=== PATIENT | male | born 1960 | race Caucasian/White ===

== ENCOUNTER → 2016-05-28 | Outpatient (CLI) | payer BC, OTHER ==
[2016-05-28 08:17] LABS: EKG EKG PERFORMED
[2016-05-28 08:46] LABS: Basophils % (A) 1 %; CH 32.7; CHCM 35.9; Eosinophils # (A) 0.2 k/uL (0-0.7); Eosinophils % (A) 5 %; HCT 42.4 % (39.0-53.0); HDW 2.86; HGB 14.6 gm/dL (13.0-17.5); Luc # (Auto) 0.11; Luc % (Auto) 3; Lymphocytes # (A) 1.1 k/uL (1.0-4.8); Lymphocytes % (A) 26 %; MCH 31.6 pg (25.0-35.0); MCHC 34.5 g/dL (31.0-37.0); MCV 91.5 fL (80.0-100.0); Mean Platelet Volume 6.5; Monocytes # (A) 0.3 k/uL (0-1.0); Monocytes % (A) 6 %; Neutrophils # (A) 2.6 k/uL (1.3-7.7); Neutrophils % (A) 60 %; RBC 4.63 m/uL (4.30-5.90); RDW 12.6 % (11.5-15.5); WBC 4.4 k/uL (3.8-10.6); WBC (Perox) 4.47
[2016-05-28 08:56] LABS: Anion Gap 11 mmol/L; Carbon Dioxide 29 mmol/L (22-30); Chloride 104 mmol/L (98-107); Potassium 4.6 mmol/L (3.5-5.1); Sodium 144 mmol/L (137-145)
== END | disposition home or self-care (01) ==
LOC: LABPAT 07:59
PROVIDERS: ATTEND Orthopaedic Surgery
DX: Z01.810 Encounter for preprocedural cardiovascular examination (principal); Z01.812 Encounter for preprocedural laboratory examination; I10 Essential (primary) hypertension; M75.42 Impingement syndrome of left shoulder
CPT/HCPCS: 36415; 80051; 85025; 93005

== ENCOUNTER 2016-06-06 06:24 | Day surgery (SDC) | payer BC, OTHER ==
[2016-06-05 11:20] VITALS: BMI 31.9
[~2016-06-06 06:24] MED LIST: DEXAMETHASONE SOD PHOSPHATE 10 MG/ML 1 ML VIAL IV ONE; HYDROmorphone 1 MG/ML 1 ML SYRINGE IVP PRN; LACTATED RINGERS 1,000 ML IV SCH; MIDAZOLAM 2 MG/2 ML VIAL IV PRN; ONDANSETRON 4 MG/2 ML VIAL IVP ONE; SCOPOLAMINE 1.5MG/72HR PATCH TRANSDERM ONE; ceFAZolin 2 GM in SODIUM CHLORIDE 0.9% 100 ML IVPB ONE
[2016-06-06] MEDS ORDERED: LIDOCAINE 1% 20 ML VIAL (10MG/ML) FOR IV START INTRADERMA ONE (07:08)
[2016-06-06] MEDS ORDERED: PROPOFOL 10 MG/ML 20 ML VIAL IV ONE (08:17)
[2016-06-06] MEDS ORDERED: MIDAZOLAM 2 MG/2 ML VIAL ONE (08:17)
[2016-06-06] MEDS ORDERED: ROPIVACAINE 5 MG/ML 30 ML VIAL ONE (08:17)
[2016-06-06] MEDS ORDERED: LIDOCAINE 2%-EPI 1:100,000 20 ML VIAL ONE (08:17)
[2016-06-06] MEDS ORDERED: LIDOCAINE 1% INJ 10MG/ML (20 ML MDV) ONE (08:17)
[2016-06-06] MEDS ORDERED: PHENYLEPHRINE-0.9% NACL SYG 1 MG/10 ML SYRINGE ONE (08:17)
[2016-06-06] MEDS ORDERED: SUCCINYLCHOLINE CHLORIDE 100 MG/5 ML SYR IV ONE (08:17)
--- NOTE | 2016-06-06 08:27 | HP ---
DATE OF ADMISSION: CHIEF COMPLAINT: Left shoulder pain. HISTORY OF PRESENT ILLNESS: The patient is a 55-year-old [employer] employee who presents with left shoulder pain after an injury at work on 04/17/2016. 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 He has been having pain with overhead use and at night ever since. He denies previous problems. He has been taking ibuprofen and Tylenol with codeine for this. PAST MEDICAL HISTORY: Significant for arthritis. PAST SURGICAL HISTORY: Significant for bilateral carpal tunnel release in addition to bilateral total knee replacements. CURRENT MEDICATIONS: 1. Gerda. 2. Ibuprofen. 3. Tylenol with codeine. He denies drug allergies. FAMILY HISTORY: Significant for diabetes. SOCIAL HISTORY: Significant for previous tobacco use, however, he quit in 1995. Sixteen point review of systems otherwise reviewed and is noncontributory. On examination, the patient is approximately 5 foot 6, 197 pounds of endomorphic habitus. HEENT examination is nonfocal. Neck is supple. On examination of his left shoulder: He is tender about the anterior subacromial space. He has moderate subacromial crepitus. Active range of motion of the left shoulder: Forward elevation 140 degrees, external rotation with arm at side 55 degrees, internal rotation to L2. Motor strength is 4+/5 for external rotation and abduction. Muñoz, impingement sign, and Neer test are positive. Speed test is mildly positive. His distal neurovascular exam otherwise appears to be intact in the left upper extremity. MRI report from 05/05/2016 of the left shoulder shows a full thickness tear involving the supraspinatus tendon in addition to biceps tendinosis and possible superior, anterior, and inferior labral tears. IMPRESSION: 1. Left shoulder acute rotator cuff tear/bicipital tendinosis. 2. Left shoulder labral tears. RECOMMENDATIONS: I talked to the patient at length regarding his treatment options. At this point with the acute nature of his injury, I recommended proceeding with surgical intervention. Will plan to proceed with arthroscopic evaluation with possible subacromial decompression, rotator cuff repair and possible biceps tenotomy and labral debridement versus repair. we will likely perform that as an outpatient procedure. The risks and benefits were discussed at length in layman's terms.
[2016-06-06] MEDS ORDERED: LACTATED RINGERS 1,000 ML IV ONE (09:06)
--- NOTE | 2016-06-06 09:57 | P.OP ---
Date of Procedure: 06/06/16 Preoperative Diagnosis: Acute left rotator cuff tear Postoperative Diagnosis: 3 cm tear left rotator cuff/high-grade partial tear long head of the biceps/ superior labral tear Procedure(s) Performed: Left shoulder arthroscopic subacromial decompression/biceps tenotomy/rotator cuff repair/superior labral debridement Implants: Arthrex 5.5 mm swivel lock anchor 2, 4.75 motor swivel lock anchor 2 Anesthesia: JULITO, regional Surgeon: Master Smith Noc Engineer #1: Humberto Martinez Estimated Blood Loss (ml): 10 Pathology: none sent Condition: stable Disposition: PACU Indications for Procedure: The patient's a 55-year-old gentleman who hurt himself at work recently injuring his left shoulder. Upon evaluation he was noted to have an acute left rotator cuff tear. A discussion of the risks and benefits of operative intervention versus attempted conservative measures was made with patient. He opted to proceed with surgery. Operative risks to include infection, neurovascular injury, possible tendon rerupture, possible postoperative stiffness and need for subsequent procedures was discussed. Informed consent was obtained. Operative Findings: As below Description of Procedure: The patient was brought to the operating room, and after induction of general anesthesia was placed in a beachchair position. The bony prominences were appropriately padded. I examined the left shoulder. There was no gross block to passive motion. There was no gross glenohumeral instability. The left upper extremity was prepped and draped in a normal fashion. The bony outlines the acromion, distal clavicle, and coracoid process were outlined with a skin marker. The glenohumeral joint was inflated with 50 mL of saline utilizing a spinal needle from posterior approach. A posterior portal was made through a 5 mm skin incision 1 cm medial and inferior to the posterior lateral border of the acromion. A blunt trocar was used to easily into the joint. Diagnostic arthroscopy was performed. An anterior portals made just lateral to the coracoid process entering the joint above the subscapularis tendon. On inspection of the biceps, there was a high-grade partial thickness tear involving the intra-articular portion. It was elected to proceed with tenotomy at this point. This was released from the superior labrum and allowed to retract to the bicipital groove. It was also a tear of the superior labrum that was debrided back to stable base with a motorized shaver. The anterior and posterior labrum was intact. No significant cartilage injury was noted involving the humeral head or glenoid. On inspection of the rotator cuff, a minimally retracted tear involving the supraspinatus tendon was noted off the greater tuberosity. The arthroscope was placed into the subacromial space. A lateral portal was made through a 5 mm skin incision 2 cm inferior to the anterolateral border of the acromion. The soft tissue on the undersurface of the acromion was debrided with a motorized shaver and with electrocautery clearly defining the anterior medial and lateral borders as well as the distal clavicle. The coracoacromial ligament was detached from the anterior acromion with electrocautery. An anterior inferior acromioplasty is performed with a motorized pascual starting anterolateral, then extending this posteriorly, then extending this medially. I was able to convert to a flat acromion. This was verified from the posterior and lateral viewing portals. The greater tuberosity was then prepared with a motorized pascual and lightly decorticating down to a bleeding bony surface. An accessory superior lateral portals made through a 4 mm skin incision just off the lateral edge of the acromion for anchor placement. 2 anchors were then placed just off the articular surface with the appropriate starting awl. 4.75 mm swivel lock anchors loaded with over 2 fiber tape were placed. These were then passed through the rotator cuff with a scorpion suture passer. A traction suture was also placed. A lateral row was then created utilizing 1 limb from each suture anchor. 5.5 mm swivel lock anchors were placed laterally with the appropriate starting awl. The tissue was appropriately tensioned. Final arthroscopic view showed adequate tenriism of the rotator cuff footprint and compression. The arthroscope was then removed. The anterior, lateral, and posterior portals were closed with simple 3-0 nylon suture. The accessory superior lateral portal was closed with Steri-Strips. A sterile dressing was applied in addition to an abductor brace. The patient was awoken from general anesthesia and transferred to recovery room in good condition. Blood loss was estimated at 10 mL. No complications were incurred. Sponge and needle counts were correct at the end the case.
[2016-06-06 10:09] VITALS: TEMP 97.6
[2016-06-06 11:01] VITALS: RESP 16
[2016-06-06 12:13] VITALS: BP 138/82; PULSE 77
== END 2016-06-06 12:43 | disposition home or self-care (01) ==
LOC: OR 06:24
PROVIDERS: ATTEND Orthopaedic Surgery
DX: S46.012A Strain of muscle(s) and tendon(s) of the rotator cuff of left shoulder, initial encounter (principal); S43.432A Superior glenoid labrum lesion of left shoulder, initial encounter; M67.814 Other specified disorders of tendon, left shoulder; K21.9 Gastro-esophageal reflux disease without esophagitis; Z87.891 Personal history of nicotine dependence; X50.0XXA Overexertion from strenuous movement or load, initial encounter; Y93.89 Activity, other specified; Y92.512 Supermarket, store or market as the place of occurrence of the external cause; Z79.899 Other long term (current) drug therapy; Z79.1 Long term (current) use of non-steroidal anti-inflammatories (NSAID); Z79.891 Long term (current) use of opiate analgesic
CPT/HCPCS: 29827; 29826; 64415; C1713 ×3; C1894; J2250; J1100; J0690; J2405; J2001; J2795; J2370; J0330; J2704

== ENCOUNTER → 2022-10-30 | Outpatient (CLI) | payer BC ==
--- NOTE | 2022-10-30 17:01 | P.PN ---
Subjective DATE: 10/30/2022 FOLLOW UP VISIT. Patient with obstructive sleep apnea hypopnea syndrome return to sleep center for follow-up visit. Recently patient had sleep study which documented obstructive sleep apnea hypopnea syndrome. Patient was initiated on PAP therapy and today is first visit after treatment was started. Patient was able to use PAP equipment every night for the whole night. Results of sleep studies to the patient in details. The patient does not have significant problems with the mask, PAP pressure and humidification. Patient feels improvements after started to use CPAP equipment. She sleeps better and she feels better during the day. [place] sleepiness scale is 9. I checked information from PAP unit. PAP unit pressure 6-15, average 11.7 cm H2O. Usage is 100% and 90 % for more then 4 hours, average 5-3/4 hours per night. Leak is 28.6 l/m, which is in acceptable range. Apnea Hypopnea Index is 0.6, which is normal. MEDICATIONS:1. Rosuvastatin 5 mg once a day 2.. Escitalopram 10 mg once a day During physical exam: GENERAL: A pleasant patient without any distress. VITAL SIGNS: BP 151/90, HR 92, RR 12, weight 211.6, temperature 97.7, oxygen saturation at room air 96%. HEENT: PERRLA, EOMI.low position of soft palate, Mallapati 4 . NECK: Supple. No JVD. LUNGS: Clear to percussion and to auscultation. Good air exchange. No wheezing or rhonchi. HEART: S1, S2 regular. ABDOMEN: Soft and nontender.[] EXTREMITIES: No clubbing or cyanosis. FINANCIAL SERVICES COUNSELOR: Awake, alert, and oriented x3. No focal deficit. Impressions: 1. Obstructive sleep apnea-hypopnea syndrome. Extremely severe range. Apnea hypopnea index is 70 by results of home sleep apnea test. Patient demonstrated great compliance with treatment, benefiting from treatment. Normal respiration on CPAP. 2. Obesity. 3. History of depression. 4.. History of BPH. 5. Hyperlipidemia. 6. Status post bilateral knee replacement. 7. Status post cyst removed from the right side of the jaw. Plan: 1. Continue using PAP equipment every night for the whole night. 2. To change air filter at least 1-2 times per month. 3. PAP unit should stay lower then position of the head. 4. Advised patient to remove all remaining water from humidifier canister daily and make it dry after each usage. Refill canister with fresh distilled water before each usage. 5. Sleep hygiene with regular time in bed for at least 8 hours. 6. Precautions related to driving. No driving if feel any sleepiness. 7. I will maintain prescription for PAP supplies including mask, tube, filters. 8. Follow up visit in 6 months or earlier if patient has any problems. 9. Watching and losing weight. Thank you very much for allowing me to participate in the management of your patient. Mason Koch MD, PhD, FAASM. Diplomat of [place] [employer], Sleep Medicine Board by [place] [employer] Sex Offender Treatment Professional of [facility] [place]
== END ==
LOC: 3 N SLEEP 15:53
PROVIDERS: ATTEND Internal Medicine
DX: G47.33 Obstructive sleep apnea (adult) (pediatric) (principal); F32.A Depression, unspecified; E66.9 Obesity, unspecified; E78.5 Hyperlipidemia, unspecified; N40.0 Benign prostatic hyperplasia without lower urinary tract symptoms; Z96.653 Presence of artificial knee joint, bilateral; Z79.899 Other long term (current) drug therapy; Z99.89 Dependence on other enabling machines and devices; Z91.048 Other nonmedicinal substance allergy status; Z87.891 Personal history of nicotine dependence
CPT/HCPCS: 99212

== ENCOUNTER → 2022-12-05 | Outpatient (CLI) | payer BC ==
[2022-12-05 15:39] LABS: Basophils # (A) 0.03 X 10*3/uL (0.00-0.10); Basophils % (A) 0.7 %; Eosinophils % (A) 4.9 %; HCT 40.6 % (39.6-50.0); HGB 13.9 d/dL (13.0-17.0); Immature Grans, Automated 0 %; Lymphocytes # (A) 1.08 X 10*3/uL (0.90-5.00); Lymphocytes % (A) 26.7 %; MCH 32.3 pg (27.0-32.0); MCHC 34.2 d/dL (32.0-37.0); MCV 94.4 FL (80.0-97.0); Monocytes # (A) 0.36 X 10*3/uL (0.20-1.00); Monocytes % (A) 8.9 %; NRBC Per 100 WBC 0 X 10*3/uL (0.00-0.01); Neutrophils # (A) 2.38 X 10*3/uL (1.80-7.70); Neutrophils % (A) 58.8 %; Platelet Count 201 X 10*3/uL (140-440); RDW 12.9 % (11.5-14.5); WBC 4.05 X 10*3/uL (4.50-10.00)
[2022-12-05 15:52] LABS: BUN/Creat Ratio 15.56 Ratio (12.00-20.00); Calcium 9.5 mg/dL (8.7-10.3); Carbon Dioxide 28.4 mmol/L (21.6-31.8); Chloride 104 mmol/L (96-109); Glucose 107 mg/dL (70-110); Potassium 4.6 mmol/L (3.5-5.5); Sodium 142 mmol/L (135-145)
[2022-12-07 06:26] LABS: NT-Pro-B-Type Natriuretic Pept <20 pg/mL
== END | disposition home or self-care (01) ==
LOC: LABWHC1 08:29
PROVIDERS: ATTEND Orthopaedic Surgery Hand Surgery
DX: Z01.812 Encounter for preprocedural laboratory examination (principal); M65.332 Trigger finger, left middle finger
CPT/HCPCS: 36415; 80048; 83880; 85025; 93005

== ENCOUNTER 2022-12-10 08:04 | Day surgery (SDC) | payer BC ==
[2022-12-04 10:43] VITALS: BMI 34.4
--- NOTE | 2022-12-08 12:53 | P.HPOR ---
History of Present Illness H&P Date: 12/08/22 ubjective: This is a 61 year old male that presents today for follow up evaluation regarding a 6 month history of progressively worsening pain, stiffness, locking and clicking of the left middle finger. He denies any injury or inciting event. He has a history of carpal tunnel release by Dr. Juarez on this hand which has not caused him any issues since. He works at [employer]. He underwent steroid injection which lasted several months but it has returned. Physical Examination: LUE: AIN/PIN/Radial/Ulnar/Median motor intact. Radial/Ulnar/Median SILT. 2+/4 Radial/Ulnar pulses palpated. 5/5 APB, 5/5 FDI. Negative Finkelsteins, negative CMC grind, negative Durkan's compression. TTP over LMF A1 luci with stiffness, and locking. Wrist F/E 80/75. Impression: 1.) Left middle finger trigger finger Plan: Diagnosis and treatment options were discussed with the patient. He would like to pursue a left middle finger A1 luci release. Risks and benefits of surgery including bleeding, infection, damage to surrounding tissue, need for further surgery, residual numbness were discussed and the patient wished to go forward with surgery. I anticipate 1-2 weeks off work until stitches are removed in office. This can be extended if needed. CC: Dr Moiz Jones DO Orthopedic Hand/Upper Extremity Surgeon Past Medical History Past Medical History: GERD/Reflux, Osteoarthritis (OA), Skin Disorder Additional Past Medical History / Comment(s): rosacea, hx migraines, seasonal allergies History of Any Multi-Drug Resistant Organisms: None Reported Past Surgical History: Joint Replacement, Orthopedic Surgery Additional Past Surgical History / Comment(s): kenyatta knee replaced, prior arthroscopies, tumor removed from jaw, carpal tunnel surg., lt shoulder surg. Past Anesthesia/Blood Transfusion Reactions: Motion Sickness Past Psychological History: Anxiety Smoking Status: Former smoker Past Alcohol Use History: Rare Additional Past Alcohol Use History / Comment(s): quit smoking ,smoked approx 20 yrs 1ppd Past Drug Use History: None Reported - Past Family History Mother Family Medical History: Diabetes Mellitus Father Family Medical History: Hypertension Medications and Allergies Home Medications Medication Instructions Recorded Confirmed Type Omeprazole [PriLOSEC] 20 mg PO DAILY 03/12/16 12/04/22 History Alfuzosin HCl [Alfuzosin HCl ER] 10 mg PO DAILY 12/04/22 12/04/22 History Citalopram Hydrobromide 10 mg PO DAILY 12/04/22 12/04/22 History [Citalopram HBr] Rosuvastatin Calcium 5 mg PO HS 12/04/22 12/04/22 History Allergies Allergy/AdvReac Type Severity Reaction Status Date / Time glue used in knee Allergy inflammatio Uncoded 12/04/22 10:33 replacement surg. n Physical Examination Osteopathic Statement: *. No significant issues noted on an osteopathic structural exam other than those noted in the History and Physical/Consult.
[~2022-12-10 08:04] MED LIST changes: -DEXAMETHASONE SOD PHOSPHATE 10 MG/ML 1 ML VIAL IV ONE; -HYDROmorphone 1 MG/ML 1 ML SYRINGE IVP PRN; -LACTATED RINGERS 1,000 ML IV SCH; -MIDAZOLAM 2 MG/2 ML VIAL IV PRN; -ONDANSETRON 4 MG/2 ML VIAL IVP ONE; +Pre Op ABX Message 1 EACH MISC MISCELLANE ONE; -SCOPOLAMINE 1.5MG/72HR PATCH TRANSDERM ONE; -ceFAZolin 2 GM in SODIUM CHLORIDE 0.9% 100 ML IVPB ONE
[2022-12-10] MEDS ORDERED: droPERidol 5 MG/2 ML VIAL IVP ONE (08:15)
[2022-12-10] MEDS ORDERED: HYDROmorphone 0.5 MG/0.5 ML SYRINGE IVP PRN (08:15)
[2022-12-10] MEDS ORDERED: DEXAMETHASONE SOD PHOSPHATE 4 MG/ML 1 ML VIAL IV ONE (08:15)
[2022-12-10] MEDS ORDERED: LIDOCAINE 1% (10MG/ML) FOR IV START INTRADERMA PRN (08:15)
[2022-12-10] MEDS ORDERED: LACTATED RINGERS 1,000 ML IV SCH (08:15)
[2022-12-10] MEDS ORDERED: ONDANSETRON 4 MG/2 ML VIAL IVP ONE (08:15)
[2022-12-10 08:50] VITALS: TEMP 97.4
[2022-12-10] MEDS ORDERED: LIDOCAINE 1% INJ 10MG/ML (20 ML MDV) SQ ONE ×2 (08:56)
[2022-12-10] MEDS ORDERED: BUPIVACAINE (PF) 0.5% 30 ML VIAL SQ ONE ×2 (08:56)
[2022-12-10] MEDS ORDERED: KETOROLAC 15 MG/ML 1 ML VIAL ONE (08:58)
[2022-12-10] MEDS ORDERED: PROPOFOL 10 MG/ML 20 ML VIAL IV ONE (08:58)
[2022-12-10] MEDS ORDERED: fentaNYL (PF) 50 MCG/ML 2 ML AMP ONE (08:58)
[2022-12-10] MEDS ORDERED: MIDAZOLAM 2 MG/2 ML VIAL ONE (08:58)
[2022-12-10 10:03] VITALS: BP 139/84; PULSE 72; RESP 16
--- NOTE | 2022-12-10 10:58 | P.OP ---
Date of Procedure: 12/10/22 Preoperative Diagnosis: Left middle finger trigger finger Postoperative Diagnosis: Left middle finger trigger finger Procedure(s) Performed: Left middle finger A1 luci release Anesthesia: MAC Surgeon: Kavon Jones Change Booth Attendant #1: Ted Drake Estimated Blood Loss (ml): 0 Pathology: none sent Condition: stable Disposition: PACU Description of Procedure: This is a 62year old male who presents today for a left middle finger A1 luci release after having failed conservative treatment in the past. Risks and benefits of surgery were discussed with the patient including bleeding, damage to surrounding tissue, infection, need to convert to open procedure, need for further surgery as well as risks of anesthesia including pulmonary embolism and even and the patient wished to proceed with surgical intervention. The patients was seen in the pre-operative area by myself. Consent and H&P were completed and updated. The correct extremity was marked in the pre-operative area by myself and all other questions were answered. Operative Narrative: The patient was brought to the operating room by the department of anesthesia. They remained on the portable stretcher and a rolling hand table was brought to the side of the operative extremity. Pre-operative time out was performed indicating the correct patient, procedure and laterality. All in the room agreed. The patient was then drifted off to sleep by the department of anesthesia. MAC anesthesia was utilized and a 50:50 mixture of 1% Lidocaine and 0.5% bupivacaine was injected into the subcutaneous tissues of the palmar skin, 8ccs total. A nonsterile tourniquet was then applied to the operative extremity and the left upper extremity was then prepped and draped in normal sterile fashion. The operative extremity was the exsanguinated with an esmarch bandage and the tourniquet was inflated to 250mmHg. Attention was drawn to the middle finger, transverse incision was made over the A1 luci. Blunt dissection was taken down to the A1 luci and radial and ulnar digital nerves were identified and carefully retracted. The A1 luci was then released from proximally to distally with scissors. The finger was then ranged and no locking was appreciated. Skin closure was performed with interrupted 4-0 nylon suture. Sterile dressing was applied consisting of adaptic, 4x4s, Webril, and an pratik bandage. Tourniquet was let down and the hand immediately was well perfused. The patient was then woken by the department of anesthesia and transferred to PACU in stable condition. Ted MCGEE was present for the case in its entirety and assisted in major portions of the case and protection of vital neurovascular structures. Kavon Jones D.O. Orthopedic Hand/Upper Extremity Surgeon
== END 2022-12-10 10:16 | disposition home or self-care (01) ==
LOC: OR 08:04
PROVIDERS: ATTEND Orthopaedic Surgery Hand Surgery
DX: M65.332 Trigger finger, left middle finger (principal); K21.9 Gastro-esophageal reflux disease without esophagitis; M19.90 Unspecified osteoarthritis, unspecified site; Z98.890 Other specified postprocedural states; Z87.891 Personal history of nicotine dependence; Z83.3 Family history of diabetes mellitus; Z82.49 Family history of ischemic heart disease and other diseases of the circulatory system; Z79.899 Other long term (current) drug therapy
CPT/HCPCS: 26055; J2250; J1100; J2405; J2001; J3010; J1885; J2704; J0665

== ENCOUNTER → 2023-05-07 | Outpatient (CLI) | payer BC ==
--- NOTE | 2023-05-07 15:59 | P.PN ---
Subjective DATE: 05/07/2023 FOLLOW UP VISIT. Patient with obstructive sleep apnea hypopnea syndrome return to sleep center for follow-up visit. Information from previous visit have been reviewed. Patient is using PAP equipment every night for the whole night, getting PAP supplies in time. The patient does not have significant problems with the mask, PAP unit and humidification. [place] sleepiness scale is 7, which is normal. I checked information from PAP unit. PAP unit pressure 6-15, average 12.6 cm H2O. Usage is 100 % for more then 4 hours, average 6 hours per night. Leak is 22 l/m, which is in acceptable range. Apnea Hypopnea Index is 3.0, which is normal. MEDICATIONS:1. Omeprazole 2. Crestor 5 mg once a day 3. Lexapro 20 mg once a day During physical exam: GENERAL: A pleasant patient without any distress. VITAL SIGNS: BP 149/86, HR 75, RR 12 , weight 221.6, temperature 98.6, oxygen saturation at room air 96 % . HEENT: PERRLA, EOMI.low position of soft palate, Mallapati 4 . NECK: Supple. No JVD. LUNGS: Clear to percussion and to auscultation. Good air exchange. No wheezing or rhonchi. HEART: S1, S2 regular. ABDOMEN: Soft and nontender.[] EXTREMITIES: No clubbing or cyanosis. REGISTERED ASSOCIATE: Awake, alert, and oriented x3. No focal deficit. Impressions: 1. Obstructive sleep apnea-hypopnea syndrome. Patient demonstrated great compliance with treatment, benefiting from treatment. 2. Obesity, BMI 38.5, patient increased weight on 10 pounds comparing to the previous visit. 3. History of BPH. 4. Hyperlipidemia. 5. History of depression. 6. Status post bilateral knee replacement. 7. Status post cyst removed from the right side of the jaw. Plan: 1. Continue using PAP equipment every night for the whole night. 2. To change air filter at least 1-2 times per month. 3. PAP unit should stay lower then position of the head. 4. Advised patient to remove all remaining water from humidifier canister daily and make it dry after each usage. Refill canister with fresh distilled water before each usage. 5. Sleep hygiene with regular time in bed for at least 8 hours. 6. Precautions related to driving. No driving if feel any sleepiness. 7. I will maintain prescription for PAP supplies including mask, tube, filters. 8. Watching and losing weight. 9.Follow up visit in 6 months or earlier if patient has any problems. Thank you very much for allowing me to participate in the management of your patient. Mason Koch MD, PhD, FAASM. Diplomat of [place] [employer], Sleep Medicine Board by [place] [employer] Bleaching Machine Operator of [facility] [place]
== END ==
LOC: 3 N SLEEP 15:31
PROVIDERS: ATTEND Internal Medicine
DX: G47.33 Obstructive sleep apnea (adult) (pediatric) (principal); E66.9 Obesity, unspecified; E78.5 Hyperlipidemia, unspecified; F32.A Depression, unspecified; N40.0 Benign prostatic hyperplasia without lower urinary tract symptoms; Z68.38 Body mass index [BMI] 38.0-38.9, adult; Z79.899 Other long term (current) drug therapy; Z96.653 Presence of artificial knee joint, bilateral; Z98.890 Other specified postprocedural states; Z99.89 Dependence on other enabling machines and devices; Z91.048 Other nonmedicinal substance allergy status; Z87.891 Personal history of nicotine dependence
CPT/HCPCS: 99212

== ENCOUNTER → 2023-12-10 | Outpatient (CLI) | payer BC ==
[2023-12-10 16:09] VITALS: BP 137/83; PULSE 84; RESP 16; TEMP 98.3
--- NOTE | 2023-12-10 16:52 | P.PROGSL ---
Subjective DATE: 12/10/2023 FOLLOW UP VISIT. Patient with obstructive sleep apnea hypopnea syndrome return to sleep center for follow-up visit. Information from previous visit have been reviewed. Patient is using PAP equipment every night for the whole night, getting PAP supplies in time. The patient does not have significant problems with the mask, PAP unit and humidification. [place] sleepiness scale is 6, which is normal. I checked information from PAP unit. PAP unit pressure 6-15, average 10 cm H2O. Usage is 100% for more then 4 hours, average 6.4 hours per night. Leak is 0 l/m, which is perfect. Apnea Hypopnea Index is 2.0, which is normal. MEDICATIONS have been reviewed, please see below. During physical exam: GENERAL: A pleasant patient without any distress. VITAL SIGNS: Please see below, weight is 115 lbs. HEENT: PERRLA, EOMI.low position of soft palate, Mallapati 4 . NECK: Supple. No JVD. LUNGS: Clear to percussion and to auscultation. Good air exchange. No wheezing or rhonchi. HEART: S1, S2 regular. ABDOMEN: Soft and nontender.[] EXTREMITIES: No clubbing or cyanosis. SHIP'S MASTER: Awake, alert, and oriented x3. No focal deficit. Impressions: 1. Obstructive sleep apnea-hypopnea syndrome. Patient demonstrated great compliance with treatment, benefiting from treatment. 2. Obesity, patient lost 6 pounds comparing with previous visit. 3. Hyperlipidemia. 4. History of depression. 5. History of BPH. 6. Status post bilateral knee replacement. 7. Status post cyst removed from the right side of the jaw. Plan: 1. Continue using PAP equipment every night for the whole night. 2. Sleep hygiene with regular time in bed for at least 7.5-8 hours 3. PAP unit should stay lower then position of the head. 4. Advised patient to remove all remaining water from humidifier canister daily and make it dry after each usage. Refill canister with fresh distilled water before each usage. 5. Watching weight. 6. Precautions related to driving. No driving if feel any sleepiness. 7. I will maintain prescription for PAP supplies including mask, tube, filters. 8. Follow up visit in 6 months or earlier if patient has any problems. Thank you very much for allowing me to participate in the management of your patient. Mason Koch MD, PhD, FAASM. Diplomat of [place] [employer], Sleep Medicine Board by [place] [employer] Brand Ambassador of [facility] [place] Objective - Vital Signs Vital Signs: Vital Signs Temp 98.3 F 12/10/23 16:08 Pulse 84 12/10/23 16:08 Resp 16 12/10/23 16:08 BP 137/83 12/10/23 16:08 Pulse Ox 95 12/10/23 16:08 FiO2 Intake & Output 12/09/23 12/10/23 12/10/23 18:59 06:59 18:59 Weight 97.522 kg Home Medications: Home Medications Medication Instructions Recorded Confirmed Type Omeprazole [PriLOSEC] 20 mg PO DAILY 03/12/16 12/10/23 History Alfuzosin HCl [Alfuzosin HCl ER] 10 mg PO DAILY 12/04/22 12/10/23 History Citalopram Hydrobromide 10 mg PO DAILY 12/04/22 12/10/23 History [Citalopram HBr] Rosuvastatin Calcium 5 mg PO HS 12/04/22 12/10/23 History ALPRAZolam [Xanax] 0.25 mg PO DAILY PRN 12/10/23 12/10/23 History Fexofenadine/Pseudoephedrine See Rx Instructions .ROUTE .COMPLEX 12/10/23 12/10/23 History [Gerda-D 24 Hour Tablet]
== END ==
LOC: 3 N SLEEP 15:45
PROVIDERS: ATTEND Internal Medicine
CPT/HCPCS: 99212

== ENCOUNTER → 2024-08-04 | Outpatient (CLI) | payer BC ==
[2024-08-04 11:39] VITALS: BP 148/80; PULSE 80; RESP 16; TEMP 98
--- NOTE | 2024-08-04 11:51 | P.PROGSL ---
Subjective DATE: 08/04/2024 FOLLOW UP VISIT. Patient with obstructive sleep apnea hypopnea syndrome return to sleep center for follow-up visit. Information from previous visit have been reviewed. Patient is using PAP equipment every night for the whole night, getting PAP supplies in time. The patient does not have significant problems with the mask, PAP unit and humidification. Fosters sleepiness scale is 5, which is normal. I checked information from PAP unit. PAP unit pressure 6-15, average 11.4 cm H2O. Usage is 100% for more then 4 hours, average 6 hours per night. Leak is 22 l/m, which is in acceptable range. Apnea Hypopnea Index is 3.1, which is normal. MEDICATIONS have been reviewed, please see below. During physical exam: GENERAL: A pleasant patient without any distress. VITAL SIGNS: Please see below, weight is 218 lbs. HEENT: PERRLA, EOMI.low position of soft palate, Mallapati 4 . NECK: Supple. No JVD. LUNGS: Clear to percussion and to auscultation. Good air exchange. No wheezing or rhonchi. HEART: S1, S2 regular. ABDOMEN: Soft and nontender.[] EXTREMITIES: No clubbing or cyanosis. 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 No focal deficit. Impressions: 1. Obstructive sleep apnea-hypopnea syndrome. Patient demonstrated great compliance with treatment, benefiting from treatment. 2. Obesity, BMI 38.0. 3. Hyperlipidemia. 4. History of depression. 5. History of BPH. 6. Status post bilateral knee replacement. 7. Status post cyst removed from the right side of the jaw. Plan: 1. Continue using PAP equipment every night for the whole night. 2. Sleep hygiene with regular time in bed for at least 7.5-8 hours 3. PAP unit should stay lower then position of the head. 4. Advised patient to remove all remaining water from humidifier canister daily and make it dry after each usage. Refill canister with fresh distilled water before each usage. 5. Watching and losing weight. 6. Precautions related to driving. No driving if feel any sleepiness. 7. I will maintain prescription for PAP supplies including mask, tube, filters. 8. Follow up visit in 8 months or earlier if patient has any problems. Thank you very much for allowing me to participate in the management of your patient. Mason Koch MD, PhD, FAASM. Diplomat of [place] [employer], Sleep Medicine Board by [place] [employer] [facility] Objective - Vital Signs Vital Signs: Vital Signs Temp 98 F 08/04/24 11:38 Pulse 80 08/04/24 11:38 Resp 16 08/04/24 11:38 BP 148/80 08/04/24 11:38 Pulse Ox 98 08/04/24 11:38 FiO2 Intake & Output 08/03/24 08/04/24 08/04/24 18:59 06:59 18:59 Weight 98.883 kg Home Medications: Home Medications Medication Instructions Recorded Confirmed Type Omeprazole [PriLOSEC] 20 mg PO DAILY 03/12/16 08/04/24 History Alfuzosin HCl [Alfuzosin HCl ER] 10 mg PO DAILY 12/04/22 08/04/24 History Citalopram Hydrobromide 10 mg PO DAILY 12/04/22 08/04/24 History [Citalopram HBr] Rosuvastatin Calcium 5 mg PO HS 12/04/22 08/04/24 History ALPRAZolam [Xanax] 0.25 mg PO DAILY PRN 12/10/23 08/04/24 History Fexofenadine/Pseudoephedrine See Rx Instructions .ROUTE .COMPLEX 12/10/23 12/10/23 History [Gerda-D 24 Hour Tablet]
== END ==
LOC: 3 N SLEEP 11:22
PROVIDERS: ATTEND Internal Medicine
DX: G47.33 Obstructive sleep apnea (adult) (pediatric) (principal); E66.9 Obesity, unspecified; E78.5 Hyperlipidemia, unspecified; N40.0 Benign prostatic hyperplasia without lower urinary tract symptoms; F32.A Depression, unspecified; Z68.38 Body mass index [BMI] 38.0-38.9, adult; Z98.890 Other specified postprocedural states; Z96.653 Presence of artificial knee joint, bilateral; Z87.891 Personal history of nicotine dependence; Z91.048 Other nonmedicinal substance allergy status; Z99.89 Dependence on other enabling machines and devices
CPT/HCPCS: 99212